=== PATIENT | male | born 1965 | race African-American/Black ===

== ENCOUNTER 2017-04-17 17:11 | Emergency (ER) | payer SELFPAY ==
[2017-04-17 17:31] VITALS: BP 143/90
[2017-04-17] MEDS ORDERED: Lidocaine 1% with EPINEPHrine 1:100,000 20 ML MDV INJECT ONE (18:16)
--- NOTE | 2017-04-17 18:17 | EDM.PDOC ---
ED HPI GENERAL MEDICAL PROBLEM - General Chief Complaint: Skin Complaint Stated Complaint: SWOLLEN L EYE Time Seen by Provider: 04/17/17 17:41 Source of Information: Reports: Patient History Limitations: Reports: No Limitations - History of Present Illness INITIAL COMMENTS - FREE TEXT/NARRATIVE: 52-year-old male comes in with chief complaint of a small area of swelling on his left lower eyelid. States it's been present for 2 weeks. Came on suddenly. No provoking factors. It is mildly painful. Decided to come in tonight because his been bothering him. He does not wear contact lenses. States he had something similar years ago that drained fluid and then resolved. No vision changes. No facial pain. Left Eye Pain Score (Numeric/FACES): 6 - Related Data Allergies Allergy/AdvReac Type Severity Reaction Status Date / Time No Known Allergies Allergy Verified 04/17/17 17:29 Home Meds: Home Meds . [No Known Home Meds] 06/21/14 [History] Past Medical History - Past Health History Medical/Surgical History: Denies Medical/Surgical History HEENT History: Reports: None Cardiovascular History: Reports: None Respiratory History: Reports: None Gastrointestinal History: Reports: None Genitourinary History: Reports: None Musculoskeletal History: Reports: None Neurological History: Reports: None Psychiatric History: Reports: None Endocrine/Metabolic History: Reports: None Hematologic History: Reports: None Oncologic (Cancer) History: Reports: None Dermatologic History: Reports: Psoriasis - Infectious Disease History Infectious Disease History: Reports: Chicken Pox Social & Family History - Family History Family Medical History: Noncontributory - Tobacco Use Smoking Status *Q: Current Some Day Smoker Years of Tobacco use: 3 Packs/Tins Daily: 0.1 - Caffeine Use Caffeine Use: Reports: Soda - Alcohol Use Days Per Week of Alcohol Use: 3 Number of Drinks Per Day: 4 Total Drinks Per Week: 12 - Recreational Drug Use Recreational Drug Use: No ED ROS GENERAL - Review of Systems Review Of Systems: See Below Constitutional: Denies: Fever HEENT: Denies: Vision Change Skin: Reports: Lesions ED EXAM, SKIN/RASH Exam: See Below Exam Limited By: No Limitations General Appearance: Alert, WD/WN, No Apparent Distress Eye Exam: Bilateral Eye: EOMI, PERRL, Other (small papule on L lower lid, beneath the lid margin, mildly erythematous, fluctant, no surrounding erythema, no discharge ) Ears: Normal External Exam Nose: Normal Inspection, Normal Mucosa, No Blood Throat/Mouth: Normal Voice Head: Atraumatic, Normocephalic Neck: Normal Inspection Respiratory/Chest: No Respiratory Distress Neurological: Alert, Oriented Psychiatric: Normal Affect, Normal Mood Skin: Warm, Dry, Intact, Normal Color, No Rash ED SKIN PROCEDURES - I&D Site: L lower eyelid Skin Prep: Providone-Iodine (Betadine) Local Anesthesia: Lidocaine: 1% with EPI Local Anesthetic Volume: 1cc Area Incised With: 11 Blade Drainage: Purulent, Clear Probed to Break Up Loculations: No Packed With: None Sterile Dressing: None Complications: No Course - Vital Signs Last Recorded V/S: Last Vital Signs Temp 36.6 C 04/17/17 17:29 Pulse 70 04/17/17 17:29 Resp 18 04/17/17 17:29 BP 143/90 H 04/17/17 17:29 Pulse Ox 96 04/17/17 17:29 - Orders/Labs/Meds Meds: Medications Discontinued Medications Generic Name Dose Route Start Last Admin Trade Name Idalmis PRN Reason Stop Dose Admin Lidocaine/Epinephrine 20 ml 04/17/17 18:16 04/17/17 18:26 Xylocaine 1% With Epinephrine 1:100,000 INJECT 04/17/17 18:17 20 ml ONETIME ONE Administration - Re-Assessments/Exams Free Text/Narrative Re-Assessment/Exam: 04/18/17 20:31 Small eyelid abscess. No lid margin involvement. No surrounding cellulitis, no indication for abx - fluid collection was very small. Advised patient to follow up with ophthalmology if area swelling does not completely resolve. 04/18/17 21:46 Departure - Departure Time of Disposition: 18:56 Disposition: Home, Self-Care 01 Clinical Impression: Abscess of eyelid left eye, unspecified eyelid - Discharge Information Instructions: Abscess, [id number] Referrals: PCP,None [Primary Care Provider] - Forms: ED Department Discharge Additional Instructions: 1. Use warm compresses on eye multiple times per day 2. Follow up with the ophthomologist of your choice in [place] 3. Return to the Emergency Department if you have worsening pain, swelling, or redness around the eyelid
== END 2017-04-17 19:05 | disposition home or self-care (01) ==
LOC: JD.ED 17:11
DX: H00.035 Abscess of left lower eyelid (principal); F17.210 Nicotine dependence, cigarettes, uncomplicated
CPT/HCPCS: 10060; 99282; 99283-25